=== PATIENT | male | born 1995 | race African-American/Black ===

== ENCOUNTER 2016-11-06 08:12 | Emergency (ER) | payer SELFPAY ==
[~2016-11-06] VITALS: Ht 188 cm; Wt 79.5 kg
[2016-11-06 08:13] VITALS: BP 143/66; PULSE 55; RESP 14; TEMP 97.7; O2SAT 100
[2016-11-06] MEDS ORDERED: ZANT150T2 PO (09:34)
--- NOTE | 2016-11-06 09:34 | PD ---
HPI Chief Complaint: GI Complaint Time Seen by Provider: 09:27 Travel History International Travel<30 days: No Contact w/Intl Traveler<30days: No Traveled to known affect area: No History of Present Illness HPI 21-year-old male here with complaint of nausea and vomiting for the last 5 days. Symptoms are present only after eating. Patient states approximately 5- 10 minutes after he eats he gets a slight upset stomach feeling and has episodes of emesis. This happens once to twice daily. No hematemesis. No abdominal pain. This is associated with an acidic taste and a burping sensation within the posterior pharynx. PFSH Past Medical History ADHD: Yes Diminished Hearing: No Immunizations Current: Yes (ALL UTD ) Influenza Vaccination: No Past Surgical History Surgical History: No Previous Surgery Social History Alcohol Use: No Tobacco Use: No Substance Use: Yes (marijuana) Allergies-Medications (Allergen,Severity, Reaction): Coded Allergies: No Known Allergies (Verified , 11/06/16) Reported Meds & Prescriptions Reported Meds & Active Scripts Active No Active Prescriptions or Reported Medications Review of Systems Except as stated in HPI: all other systems reviewed are Neg Physical Exam Narrative GENERAL: Well-appearing male in no acute distress SKIN: Warm and dry. HEAD: Normocephalic. EYES: No scleral icterus. No injection or drainage. ENT: Mucous membranes pink and moist. NECK: Supple CARDIOVASCULAR: Regular rate and rhythm. RESPIRATORY: No accessory muscle use. GASTROINTESTINAL: Abdomen soft, non-tender, nondistended. MUSCULOSKELETAL: Normal gait NEUROLOGICAL: Awake and alert. Normal speech. PSYCHIATRIC: Appropriate mood and affect; insight and judgment normal. Data Data Last Documented VS Vital Signs Date Time Temp Pulse Resp B/P Pulse Ox O2 Delivery O2 Flow Rate FiO2 11/06/16 08:13 97.7 55 14 143/66 100 Room Air MDM Medical Decision Making Medical Screen Exam Complete: Yes Emergency Medical Condition: Yes Medical Record Reviewed: Yes Differential Diagnosis 21-year-old male here with nausea and vomiting after eating says he with an acidic taste in the posterior pharynx. Exam is consistent with GERD. No abdominal pain to suggest gastritis, pancreatitis or hepatobiliary pathology. Narrative Course Patient will be treated with antacid for home. Diagnosis Primary Impression: GERD (gastroesophageal reflux disease) Qualified Code: K21.9 - Gastroesophageal reflux disease without esophagitis Referrals: Primary Care Physician as needed Patient Instructions: Gastroesophageal Reflux Disease (ED), General Instructions Additional Instructions: Antacid as prescribed. For the next week, 10-15 minutes prior to eating take [id number] antacids such as Elisabet-[place], Tums, Rolaids, Pepto-Bismol, Maalox, etc. Med/Other Pt SpecificInfo: Prescription(s) given Scripts Ranitidine (Zantac)150 Mg Tkl643 Mg PO BID #60 TAB Ref 0 Prov:Ella Wang MD 11/06/16 Disposition: 01 DISCHARGE HOME Condition: Stable Ella Wang MD Nov 06, 2016 09:34
== END 2016-11-06 09:52 | disposition home or self-care (01) ==
LOC: NEPD 08:12
DX: K21.9 Gastro-esophageal reflux disease without esophagitis (principal); Z86.59 Personal history of other mental and behavioral disorders
CPT/HCPCS: 99283

== ENCOUNTER 2017-07-27 21:01 | Emergency (ER) | payer SELFPAY ==
[~2017-07-27] VITALS: Ht 188 cm; Wt 73.5 kg
[~2017-07-27 21:01] MED LIST: ZANT150T2 PO
[2017-07-27 21:11] VITALS: BP 117/62; PULSE 62; RESP 18; TEMP 98; O2SAT 100
[2017-07-27 21:45] LABS: BLOOD, URINE NEG (NEG); GLUCOSE,URINE NEG (NEG); KETONE, URINE NEG (NEG); NITRITE,URINE NEG (NEG)
--- NOTE | 2017-07-27 21:59 | PD ---
HPI . Dysuria, penile discharge Chief Complaint: Complaint Time Seen by Provider: 21:16 Travel History International Travel<30 days: No Contact w/Intl Traveler<30days: No Traveled to known affect area: No History of Present Illness HPI 22-year-old male patient presents emergency department for evaluation of dysuria and penile discharge that started earlier today. Patient describes the discharge as clear and white. Patient states he recently had any sexual partner a couple days ago and they did use protection. Patient has no major medical history. He does not take any daily medication and has no allergies. Patient denies any fevers, chills, flank pain, chest pain, shortness breath, nausea, abdominal pain, vomiting, diarrhea. PFSH Past Medical History ADHD: Yes Diminished Hearing: No Immunizations Current: Yes (ALL UTD ) Influenza Vaccination: No ?: Not Social History Alcohol Use: No Tobacco Use: Yes (2 cigars) Substance Use: Yes (marijuana) Allergies-Medications (Allergen,Severity, Reaction): Coded Allergies: No Known Allergies (Verified , 07/27/17) Reported Meds & Prescriptions Reported Meds & Active Scripts Active Review of Systems Except as stated in HPI: all other systems reviewed are Neg Physical Exam Narrative GENERAL: Well-nourished, well-developed 22-year-old male patient in no acute distress. Nontoxic appearing. SKIN: Focused skin assessment warm/dry. HEAD: Normocephalic. Atraumatic. EYES: No scleral icterus. No injection or drainage. NECK: Supple, trachea midline. No JVD or lymphadenopathy. CARDIOVASCULAR: Regular rate and rhythm without murmurs, gallops, or rubs. RESPIRATORY: Breath sounds equal bilaterally. No accessory muscle use. GENITOURINARY: Circumcised. Testes descended bilaterally without evidence of rotation. No lesions or erythema. Thick white urethral discharge noted. GASTROINTESTINAL: Abdomen soft, non-tender, nondistended. MUSCULOSKELETAL: No cyanosis, or edema. BACK: Nontender without obvious deformity. No CVA tenderness. Data Data Last Documented VS Vital Signs Date Time Temp Pulse Resp B/P (MAP) Pulse Ox O2 Delivery O2 Flow Rate FiO2 07/27/17 21:11 98.0 62 18 117/62 (80) 100 Orders Orders Urinalysis - C+S If Indicated (07/27/17 21:33) Gc And Chlamydia Pcr (07/27/17 21:33) Azithromycin Powd Pack (Zithromax Powd P (07/27/17 22:30) Ceftriaxone Inj (Rocephin Inj) (07/27/17 22:30) Lidocaine 1% Inj (50 Ml) (Xylocaine 1% I (07/27/17 22:30) Urine Culture (07/27/17 21:30) Labs Laboratory Tests Test 07/27/17 21:30 Urine Collection Type CLEAN CATCH Urine Color YELLOW Urine Turbidity CLEAR Urine pH 6.0 Urine Specific [place] 1.032 Urine Protein TRACE mg/dL Urine Glucose (UA) NEG mg/dL Urine Ketones NEG mg/dL Urine Occult Blood NEG Urine Nitrite NEG Urine Bilirubin NEG Urine Leukocyte Esterase TRACE Urine WBC 25-49 /hpf Urine Squamous Epithelial Cells 0-2 /hpf Urine Bacteria FEW /hpf Urine Mucus MANY /lpf Microscopic Urinalysis Comment CULTURE INDICATED MDM Medical Decision Making Medical Screen Exam Complete: Yes Emergency Medical Condition: Yes Differential Diagnosis Differential diagnoses include but not limited to urinary tract infection, STI, pyelonephritis Narrative Course 22-year-old male patient presents emergency department for evaluation of dysuria and penile discharge that started today. Patient states he has a new sexual partner couple days ago and they did not use protection. Urinalysis ordered and pending. GC chlamydia from urine ordered and pending. Urinalysis shows many white blood cells. The physical exam the patient showed a thick white discharge coming from the urethra. Patient will be treated for urethritis with Rocephin and azithromycin and discharged home with instructions to use protection, notify sexual partners and follow up with his primary care physician. Diagnosis Primary Impression: STI (sexually transmitted infection) Patient Instructions: General Instructions, Sexually Transmitted Diseases (ED) Additional Instructions: Please return to emergency department if your symptoms return or worsen. Follow up with your primary care provider. Notify all possible sexual partners. Use protection in future sexual endeavors. Disposition: 01 DISCHARGE HOME Condition: Stable Vera Heredia RAMYA Jul 27, 2017 21:59
[2017-07-27 22:07] LABS: METHOD OF COLLECTION CLEAN CATCH; URINE COLOR YELLOW (YELLW/STRAW)
[2017-07-27 22:09] LABS: MUCUS URINE MANY /lpf (OCC)
[2017-07-27 22:22] LABS: SQUAMOUS EPITHELIAL CELL URINE 0-2 /hpf (0-5)
[2017-07-27 22:23] LABS: BACTERIA, URINE FEW /hpf; COMMENT (UR) CULTURE INDICATED; CULTURE IF INDICATED CULTURE INDICATED
[2017-07-27] MEDS ORDERED: cefTRIAXone 250 MG VIAL IM ONE (22:30)
[2017-07-27] MEDS ORDERED: AZITHROMYCIN PWD FOR SUSP 1 GM PACKET PO ONE (22:30)
[2017-07-27] MEDS ORDERED: LIDOCAINE HCL 1% 50 ML VIAL XX ONE (22:30)
[2017-07-28 10:55] LABS: CHLAMYDIA PCR DETECTED (NOT DETECT); NEISSERIA PCR DETECTED (NOT DETECT)
== END 2017-07-27 22:55 | disposition home or self-care (01) ==
LOC: PHEFT 21:01
DX: A64 Unspecified sexually transmitted disease (principal); N34.2 Other urethritis; B96.89 Other specified bacterial agents as the cause of diseases classified elsewhere; F12.90 Cannabis use, unspecified, uncomplicated; Z72.0 Tobacco use
CPT/HCPCS: 81001; 87086; 87491; 87591; 96372; 99284; J0696